=== PATIENT | female | born 1970 | race Caucasian/White ===

== ENCOUNTER 2017-02-24 06:21 | Day surgery (SDC) | payer BC ==
[~2017-02-24 06:21] MED LIST: BYSTOLIC5 MG PO; GENTAK0.3 % OPH; IBU800 PO; MELATONIN1 M1 PO; NEUR100 PO; OTC STOOL SOFTENER PO; PREV15 PO; PROMETRIUM PO; SKELAXIN8 PO; ULTRAM50 PO
[2017-05-12] MEDS ORDERED: ASAB PO (14:17)
[2017-05-26] MEDS ORDERED: MEG20 PO (16:03)
== END 2017-02-24 09:13 | disposition home or self-care (01) ==
LOC: SDC 06:21
PROVIDERS: Orthopaedic Surgery
PROC: 3E0S3BZ Introduction of Anesthetic Agent into Epidural Space, Percutaneous Approach (ICD-10-PCS; 2017-02-24)
PROC: 3E0S33Z Introduction of Anti-inflammatory into Epidural Space, Percutaneous Approach (ICD-10-PCS; principal; 2017-02-24 07:00)
DX: M54.16 Radiculopathy, lumbar region (principal); M54.5 Low back pain; I10 Essential (primary) hypertension; K21.9 Gastro-esophageal reflux disease without esophagitis; M19.90 Unspecified osteoarthritis, unspecified site; K52.9 Noninfective gastroenteritis and colitis, unspecified; Z88.0 Allergy status to penicillin; Z98.51 Tubal ligation status; Z91.040 Latex allergy status; Z87.891 Personal history of nicotine dependence; Z90.89 Acquired absence of other organs; Z79.899 Other long term (current) drug therapy; Z79.891 Long term (current) use of opiate analgesic
CPT/HCPCS: J1040; J2250; J3010; Q9967